=== PATIENT | male | born 1975 | race Hispanic/Latino ===

== ENCOUNTER 2019-08-23 15:25 | Outpatient (CLI) | payer OTHER ==
--- NOTE | 2019-08-23 15:57 | ULT ---
Pelvic sonogram HISTORY: Pelvic pain. Groin pain. FINDINGS: Urinary bladder has normal appearance. No free fluid. At the left groin in region of pain, peristalsing echogenicity is present at the expected location of the left inguinal canal. IMPRESSION: Abnormality at the left groin favored to represent bowel within a left inguinal hernia. CT could be used for confirmation if needed.
== END 2019-08-23 15:26 | disposition home or self-care (01) ==
LOC: BICULT 15:25
PROVIDERS: ATTEND Nurse Practitioner Family
DX: R10.2 Pelvic and perineal pain (principal); R93.89 Abnormal findings on diagnostic imaging of other specified body structures
CPT/HCPCS: 76856

== ENCOUNTER 2019-08-26 15:09 | Outpatient (CLI) | payer OTHER ==
[~2019-08-26 15:09] MED LIST: Iopamidol-370 76% 500 ML 1 ML ONE
--- NOTE | 2019-08-26 16:48 | CT ---
CT ABDOMEN AND PELVIS WITH CONTRAST: 08/26/19 HISTORY: Pelvic pain. COMPARISON: Ultrasound 08/23/19. FINDINGS: The lung bases are clear. No pericardial effusion. The liver, gallbladder, spleen, pancreas are unremarkable. Adrenal glands are unremarkable. No hydronephrosis. The pancreas is unremarkable. Sigmoid colon containing a left sided indirect ingui nal hernia without evidence of obstruction. The aortoiliac contour is nonaneurysmal. No acute osseous abnormality. IMPRESSION: Sigmoid colon containing left sided indirect inguinal hernia without evidence of obstruction. Surgica l consultation is advised. POS: CET
== END 2019-08-26 15:10 | disposition home or self-care (01) ==
LOC: BICCT 15:09
PROVIDERS: ATTEND Nurse Practitioner Family
DX: R10.2 Pelvic and perineal pain (principal); K40.90 Unilateral inguinal hernia, without obstruction or gangrene, not specified as recurrent
CPT/HCPCS: 74177; Q9967

== ENCOUNTER 2019-09-17 08:57 | Outpatient (CLI) | payer OTHER ==
[2019-09-17 10:56] LABS: #Eosinphils 0.2 thou/uL (0.0-0.7); #Monocytes 0.7 thou/uL (0.11-0.59); #Neutrophils 4.3 thou/uL (1.40-6.50); %Basophils 0.5 % (0.0-1.0); %Eosinophils 2.8 % (0.0-10.0); %Lymphocytes 27.7 % (21.0-51.0); %Monocytes 9.1 % (0.0-10.0); %Neutrophils 59.9 % (42.0-75.0); Mean Corpuscular HGB CONC 32.6 g/dL (32.0-36.0); Mean Corpuscular Hemoglobin 26.9 pg (27.0-31.0); Mean Corpuscular Volume 82.5 fL (78.0-98.0); Mean Platelet Volume 8.1 fL (7.4-10.4); Platelet Count 242 thou/uL (130-400); RBC Distribution Width 13.5 % (11.5-14.5); White Blood Cell (WBC) Count 7.2 thou/uL (4.8-10.8)
[2019-09-17 11:20] LABS: Anion Gap 15 mmol/L (10-20); BUN (Urea Nitrogen) 16 mg/dL (8.9-20.6); Calc. Creatinine Clearance 0 mL/min (70-130); Calcium 9.7 mg/dL (7.8-10.44); Carbon Dioxide 25 mmol/L (22-29); Chloride 104 mmol/L (98-107); Estimated GFR-MDRD Greater than 90; Glucose 95 mg/dL (70-105); Potassium 4.4 mmol/L (3.5-5.1); Sodium 140 mmol/L (136-145)
--- NOTE | 2019-09-20 00:13 | EKG ---
Test Reason : Blood Pressure : / mmHG Vent. Rate : 085 BPM Atrial Rate : 085 BPM P-R Int : 150 ms QRS Dur : 114 ms QT Int : 388 ms P-R-T Axes : 046 050 -06 degrees QTc Int : 461 ms Normal sinus rhythm Right atrial enlargement T wave abnormality, consider inferior ischemia Abnormal ECG No previous ECGs available Confirmed by Twan HOLLINS ([id number]) on 09/20/2019 12:13:34 AM Referred By: FENG Confirmed By:Twan HOLLINS
== END 2019-09-17 08:58 | disposition home or self-care (01) ==
LOC: LABBT 08:57
PROVIDERS: ATTEND Specialist
DX: Z01.818 Encounter for other preprocedural examination (principal); K40.20 Bilateral inguinal hernia, without obstruction or gangrene, not specified as recurrent
CPT/HCPCS: 80048; 85025; 93005; 93010

== ENCOUNTER 2019-09-21 10:21 | Day surgery (SDC) | payer OTHER, SELFPAY ==
[2019-09-17 09:18] VITALS: BMI 31.3
[2019-09-21] MEDS ORDERED: Ketorolac Tromethamine 30 MG/ML VIAL ONE (10:48)
[2019-09-21] MEDS ORDERED: Acetaminophen 500 MG TAB ONE (10:48)
[2019-09-21] MEDS ORDERED: Bupivacaine 0.25% HCL 30 ML VIAL ONE (11:36)
[2019-09-21] MEDS ORDERED: Bupivacaine PF 0.5% 30 ML VIAL ONE (11:36)
[2019-09-21] MEDS ORDERED: Lidocaine 1% w/Epinephrine 1:100K 20 ML VIAL ONE (11:36)
[2019-09-21] MEDS ORDERED: Fentanyl 100 MCG/2 ML VIAL ONE (12:01)
[2019-09-21] MEDS ORDERED: PROPOFOL 200 MG/20 ML VIAL ONE (13:13)
[2019-09-21] MEDS ORDERED: Lidocaine 1% PF 5 ML VIAL ONE (13:13)
[2019-09-21] MEDS ORDERED: Ondansetron PF 4 MG/2 ML Vial ONE (15:02)
--- NOTE | 2019-09-22 12:58 | OP ---
DATE OF PROCEDURE: 09/21/2019 PREOPERATIVE DIAGNOSIS: Bilateral inguinal hernia with a large left scrotal hernia. POSTOPERATIVE DIAGNOSES: Bilateral inguinal hernia with a large left scrotal hernia, with bilateral spermatic cord lipomas. PROCEDURES PERFORMED: Bilateral inguinal hernia repair with mesh patch and plug, placement of bilateral On-Q pain pump, and excision of bilateral cord lipomas. ANESTHESIA: General endotracheal. INDICATIONS: The patient is a 43-year-old male. He presents with a large left inguinal hernia that extends down into the scrotum. He has a palpable right inguinal hernia as well. He is taken to the operating room at this time for repair. Open repair has been recommended secondary to the size of the large left hernia. DESCRIPTION OF OPERATION: Informed consent was obtained. The patient was taken to the operating room, where general endotracheal anesthesia was obtained with the patient in supine position. Bilateral groin was prepped with ChloraPrep and draped in sterile fashion. Attention was turned first to the right side. Local anesthetic was infiltrated using extra of 1% lidocaine and 0.25% Marcaine. Oblique right inguinal incision was created and dissection was carried through skin and subcutaneous tissue. The fascia was opened parallel to its fiber so as to open the external ring. Dissection within the inguinal canal revealed a substantial hernia involving the cord, but no evidence of a direct hernia. The cord was encircled with [place] drain and dissected. There was a large cord lipoma that was dissected back into the preperitoneal origin, where it was ligated and transected. Attention was then turned to the large visible hernia sac. This was carefully dissected free from surrounding cord structures and dissected back to its origin at the internal ring. The apex of the hernia sac was secured to the apex of a large mesh plug and the complex was inverted into the preperitoneal space. The plug was secured to the surrounding fascia with 3 interrupted sutures of 2-0 Vicryl. Mesh patch was then obtained, trimmed to appropriate size, placed within the floor of the inguinal canal. It was secured in place with several interrupted sutures of 2-0 Vicryl. An On-Q pain pump was tunneled on the superior entry into the wound below the fascia, where it was directed medially towards the pubic tubercle. The catheter was flushed with 0.5% plain Marcaine. The fascia was then closed with a running suture of 3-0 Vicryl and the remainder of the wound closed in layers with 3-0 and 4-0 Monocryl. Dermabond was placed externally over the incision as well as at the catheter exit site. The catheter was coiled in the usual fashion and an occlusive dressing was placed over the catheter exit site. The catheter was secured to 100 mL bulb that contain 120 mL of 0.5% Marcaine. Attention was turned to the left groin. A mirror image, but larger incision was created after local anesthetic was infiltrated. Dissection within the wound revealed a very large hernia emanating from a large external ring defect. The fascia was opened and with some degree of difficulty, I dissected the cord structures and was able to encircle them with a [place] drain. The cord was opened and the large hernia sac was identified. It was felt to be too large to dissect out of the scrotum. I therefore opened the hernia sac revealing a large volume of sigmoid colon present within the scrotum. This was all reduced from the scrotum up into the wound and with some degree of effort was able to be reduced back to the abdominal cavity. At that point, the hernia sac was dissected circumferentially and transected. The back was dissected back to preperitoneal space at the internal ring. It was ligated using a pursestring suture of 2-0 Vicryl. Additional suture ligatures were placed at the side to give additional strength to the closure. An extra-large mesh plug was then secured to the apex of the hernia sac. The complex was inverted in the preperitoneal space, where it was secured in place with several interrupted sutures of 2-0 Vicryl. The mesh patch was obtained, prepped to appropriate size, placed at the floor of the inguinal canal, and secured in place with several interrupted sutures of 2-0 Vicryl. As per the other side, the On-Q pump was tunneled in position. The wound was closed in identical fashion. The pump was attached to the catheter in the same fashion with the same dressing being placed externally. There were no complications. The patient tolerated the procedure well and was taken to recovery room in stable condition. Job ID: [id number]
== END 2019-09-21 16:55 | disposition home or self-care (01) ==
LOC: SDC 10:21
PROVIDERS: ATTEND Specialist
PROC: 0YUA0JZ Supplement Bilateral Inguinal Region with Synthetic Substitute, Open Approach (ICD-10-PCS; principal; 2019-09-21)
DX: K40.20 Bilateral inguinal hernia, without obstruction or gangrene, not specified as recurrent (principal); D17.6 Benign lipomatous neoplasm of spermatic cord; I10 Essential (primary) hypertension; Z79.899 Other long term (current) drug therapy
CPT/HCPCS: A4306; C1781; J0690; J1885; J2001; J2405; J2704; J3010; S0020